=== PATIENT | female | born 1985 | race African-American/Black ===

== ENCOUNTER 2017-05-14 10:33 | Emergency (ER) | payer SELFPAY ==
[~2017-05-14] VITALS: Ht 167.6 cm; Wt 98.0 kg
[~2017-05-14 10:33] MED LIST: MOTRIN
[2017-05-14] MEDS ORDERED: ALBU2.5V13 IH (10:48)
[2017-05-14 11:51] LABS: CLARITY URINE CLEAR (CLEAR); COLOR URINE YELLOW (YELLOW); GLUCOSE URINE NEGATIVE (NEGATIVE); KETONES URINE NEGATIVE (NEGATIVE); LEUKOCYTE ESTERASE URINE 1+ (NEGATIVE); NITRITE URINE NEGATIVE (NEGATIVE); OCCULT BLOOD URINE TRACE (NEGATIVE); PROTEIN URINE NEGATIVE (NEGATIVE); SPECIFIC GRAVITY URINE 1.022 (1.005-1.030); UROBILINOGEN URINE 0.2 E.U./dL (0.2-1.0)
[2017-05-14] MEDS ORDERED: SODIUM CHLORIDE 0.9% 1,000 ML IV ONE (13:01)
[2017-05-14] MEDS ORDERED: ONDANSETRON HCL 4MG/2ML VIAL IV STA (13:01)
[2017-05-14] MEDS ORDERED: ONDANSETRON HCL 4MG/2ML VIAL IV ONE (13:15)
[2017-05-14] MEDS ORDERED: MORPHINE SULFATE 4 MG/ML CPJ (NOT FOR IM USE) IV ONE (13:15)
[2017-05-14 13:27] LABS: EOSINOPHILS % 2.4 % (0.0-5.0); HEMATOCRIT. 32.6 % (36.0-48.0); HEMOGLOBIN. 10.8 g/dL (12.0-16.0); LYMPHOCYTES % 39.4 % (20.0-50.0); MEAN CORPUSCULAR VOLUME 81.6 fL (81.0-99.0); MEAN PLATELET VOLUME 7.5 fl (7.4-10.4); NEUTROPHILS % 53.2 % (40.0-76.0); PLATELET 386 x1000/uL (130-400); RED BLOOD CELL COUNT 3.99 mill/uL (4.2-5.4)
[2017-05-14 13:44] LABS: CARBON DIOXIDE 30 mEq/L (21-32); CHLORIDE 104 mEq/L (98-107)
[2017-05-14] MEDS ORDERED: MORPHINE SULFATE 2 MG/ML CPJ (NOT FOR IM USE) IV ONE ×2 (13:45)
[2017-05-14] MEDS ORDERED: IOHEXOL-300 100 ML BOTTLE ONE (15:23)
[2017-05-14 19:55] VITALS: BP 121/69
== END 2017-05-14 20:04 | disposition home or self-care (01) ==
LOC: ER 10:45
DX: N83.209 Unspecified ovarian cyst, unspecified side (principal); N39.0 Urinary tract infection, site not specified; J45.909 Unspecified asthma, uncomplicated
CPT/HCPCS: 36415; 74177; 76856; 80053; 81001; 83605; 83690; 85025; 96361; 96374; 96375; 99285; J2270; J2405; J7030; Q9967; Z7610

== ENCOUNTER 2017-11-25 07:58 | Emergency (ER) | payer SELFPAY ==
[~2017-11-25] VITALS: Ht 165.1 cm; Wt 98.0 kg
[~2017-11-25 07:58] MED LIST changes: +ALBU2.5V13 IH
[2017-11-25] MEDS ORDERED: KETOROLAC 30MG/ML VIAL IV STA (11:26)
[2017-11-25] MEDS ORDERED: SODIUM CHLORIDE 0.9% 1,000 ML IV ONE (11:26)
[2017-11-25] MEDS ORDERED: ONDANSETRON HCL 4MG/2ML VIAL IV STA (11:26)
[2017-11-25 11:52] LABS: CLARITY URINE CLEAR (CLEAR); COLOR URINE YELLOW (YELLOW); KETONES URINE NEGATIVE (NEGATIVE); LEUKOCYTE ESTERASE URINE NEGATIVE (NEGATIVE); NITRITE URINE NEGATIVE (NEGATIVE); OCCULT BLOOD URINE 1+ (NEGATIVE); PH URINE 6.5 (4.5-8.0); PROTEIN URINE NEGATIVE (NEGATIVE); SPECIFIC GRAVITY URINE 1.015 (1.005-1.030); UROBILINOGEN URINE 0.2 E.U./dL (0.2-1.0)
[2017-11-25 12:05] LABS: BASOPHILS % 0.4 % (0.0-2.0); EOSINOPHILS % 0.9 % (0.0-5.0); HEMATOCRIT. 29.2 % (36.0-48.0); HEMOGLOBIN. 9.7 g/dL (12.0-16.0); LYMPHOCYTES % 32.7 % (20.0-50.0); MEAN CORPUSCULAR HEMOGLOBIN 26.6 pg (28.0-32.0); MEAN CORPUSCULAR VOLUME 80.3 fL (81.0-99.0); MEAN PLATELET VOLUME 7.6 fl (7.4-10.4); MONOCYTES % 6.3 % (2.0-8.0); NEUTROPHILS % 59.7 % (40.0-76.0); PLATELET 344 x1000/uL (130-400); RED BLOOD CELL COUNT 3.64 mill/uL (4.2-5.4); RED CELL DISTRIBUTION WIDTH 14.2 % (11.6-14.6)
[2017-11-25 12:08] LABS: CHLORIDE 103 mEq/L (98-107)
[2017-11-25 12:09] LABS: INR 1.2; PROTHROMBIN TIME 12.2 sec (9.4-11.6)
[2017-11-25] MEDS ORDERED: MORPHINE SULFATE 4 MG/ML CPJ (NOT FOR IM USE) IV ONE (13:15)
[2017-11-25 17:21] VITALS: BP 115/62
== END 2017-11-25 17:24 | disposition home or self-care (01) ==
LOC: ER 09:16
DX: R10.84 Generalized abdominal pain (principal); J45.909 Unspecified asthma, uncomplicated; N83.209 Unspecified ovarian cyst, unspecified side
CPT/HCPCS: 36415; 74176; 76830; 76856; 80053; 81003; 81025; 83690; 85025; 85610; 96374; 96375; 99285; J1885; J2270; J2405; J7030

== ENCOUNTER 2022-02-26 09:33 | Emergency (ER) | payer MEDICAID ==
[~2022-02-26] VITALS: Ht 167.6 cm; Wt 108.0 kg
[2022-02-26 09:41] VITALS: BP 133/80
[2022-02-26 11:30] LABS: BASOPHILS % 0.4 % (0.0-2.0); EOSINOPHILS % 1.8 % (0.0-5.0); HEMATOCRIT. 34.7 % (36.0-48.0); HEMOGLOBIN. 11.2 g/dL (12.0-16.0); LYMPHOCYTES % 44.4 % (20.0-50.0); MEAN CORPUSCULAR HEMOGLOBIN 26.6 pg (28.0-32.0); MEAN CORPUSCULAR VOLUME 82.1 fL (81.0-99.0); MEAN PLATELET VOLUME 7.6 fl (7.4-10.4); MONOCYTES % 5.3 % (2.0-8.0); NEUTROPHILS % 48.1 % (40.0-76.0); PLATELET 420 x1000/uL (130-400); RED BLOOD CELL COUNT 4.22 mill/uL (4.2-5.4); RED CELL DISTRIBUTION WIDTH 13.8 % (11.6-14.6)
[2022-02-26 11:40] LABS: CHLORIDE 105 mEq/L (98-107)
[2022-02-26 11:57] LABS: HCG SCREEN NEGATIVE
== END 2022-02-26 12:40 | disposition home or self-care (01) ==
LOC: ER 09:41
DX: R60.0 Localized edema (principal); I87.8 Other specified disorders of veins; E11.9 Type 2 diabetes mellitus without complications; J45.909 Unspecified asthma, uncomplicated
CPT/HCPCS: 36415; 80053; 81025; 83880; 84703; 85025; 93970; 99284

== ENCOUNTER 2024-05-25 00:03 | Emergency (ER) | payer MEDICAID ==
[~2024-05-25] VITALS: Ht 162.6 cm; Wt 107.2 kg
[2024-05-25 00:13] VITALS: O2SAT 100
[2024-05-25 01:44] LABS: CLARITY URINE CLEAR (CLEAR); COLOR URINE YELLOW (YELLOW); GLUCOSE URINE NEGATIVE (NEGATIVE); KETONES URINE TRACE (NEGATIVE); LEUKOCYTE ESTERASE URINE TRACE (NEGATIVE); NITRITE URINE NEGATIVE (NEGATIVE); OCCULT BLOOD URINE NEGATIVE (NEGATIVE); PH URINE 5.5 (4.5-8.0); PROTEIN URINE TRACE (NEGATIVE); SPECIFIC GRAVITY URINE 1.028 (1.005-1.030)
[2024-05-25 01:51] LABS: BASOPHILS % 0.6 % (0.0-2.0); EOSINOPHILS % 1.1 % (0.0-5.0); HEMATOCRIT. 35.4 % (36.0-48.0); HEMOGLOBIN. 11.7 g/dL (12.0-16.0); LYMPHOCYTES % 27.7 % (20.0-50.0); MEAN CORPUSCULAR HEMOGLOBIN 27.5 pg (28.0-32.0); MEAN CORPUSCULAR HGB CONC 32.9 g/dL (31.0-37.0); MEAN CORPUSCULAR VOLUME 83.6 fL (81.0-99.0); MONOCYTES % 5.7 % (2.0-8.0); NEUTROPHILS % 64.9 % (40.0-76.0); PLATELET 409 x1000/uL (130-400); RED BLOOD CELL COUNT 4.24 mill/uL (4.2-5.4); RED CELL DISTRIBUTION WIDTH 13.6 % (11.6-14.6); WHITE BLOOD COUNT 9.6 x1000/uL (4.5-11.0)
[2024-05-25 02:03] LABS: CARBON DIOXIDE 27 mEq/L (21-32); CHLORIDE 105 mEq/L (98-107); POTASSIUM 3.9 mEq/L (3.5-5.1); SODIUM 139 mEq/L (136-145)
[2024-05-25 02:04] LABS: CALCIUM 9.3 mg/dL (8.7-10.4)
[2024-05-25 02:08] LABS: CREATININE 0.9 mg/dL (0.6-1.0); GLUCOSE 181 mg/dL (70-105)
[2024-05-25 02:09] LABS: UREA NITROGEN BLOOD 11 mg/dL (9-23)
[2024-05-25 02:10] LABS: ALANINE AMINOTRANSFERASE 12 IU/L (10-49); ALBUMIN 4.1 g/dL (3.2-4.8); ASPARTATE AMINOTRANSFERASE 18 IU/L (<34)
[2024-05-25 02:11] LABS: BILIRUBIN DIRECT 0.2 mg/dL (<=3.0); BILIRUBIN TOTAL 0.6 mg/dL (0.1-1.0); PROTEIN TOTAL 7.3 g/dL (6.0-8.3)
[2024-05-25] MEDS: ACETAMINOPHEN 325MG TABLET PO ONE (03:27)
[2024-05-25] MEDS ORDERED: IOHEXOL-300 100 ML BOTTLE ONE (03:56)
[2024-05-25] MEDS ORDERED: ACET-2708 MT (04:39)
[2024-05-25] MEDS ORDERED: CLIN-194 MT (04:39)
[2024-05-25 04:50] VITALS: BP 132/85; PULSE 68; RESP 18; TEMP 36.94740; O2SAT 100
[2024-05-25 05:22] LABS: SQUAMOUS EPITHELIAL CELL URINE 1+ /lpf (RARE/1+)
[2024-05-25 05:27] LABS: RBC URINE 0-2 /hpf (0-2)
[2024-05-25 05:29] LABS: BACTERIA URINE TRACE
[2024-05-25 05:30] LABS: UCG SCREEN NEGATIVE
== END 2024-05-25 04:50 | disposition home or self-care (01) ==
LOC: ER 00:03
DX: E11.65 Type 2 diabetes mellitus with hyperglycemia (principal); D72.828 Other elevated white blood cell count; J45.909 Unspecified asthma, uncomplicated; E78.00 Pure hypercholesterolemia, unspecified
CPT/HCPCS: 80076; 80048; 81003; 81025; 83690; 85025; 36415; 70487; 99285; Q9967; Z7610; 99284